=== PATIENT | male | born 2000 | race African-American/Black ===

== ENCOUNTER 2022-11-17 17:48 | Emergency (ER) | payer OTHER ==
[2022-11-17 18:11] VITALS: BP 130/76; O2SAT 100
--- NOTE | 2022-11-17 18:19 | ED Physician Documentation ---
History of Present Illness - Stated complaint Stated Complaint: CHEST PX - Chief complaint Chief Complaint: Abd Pain - Additonal information Additional information: 22-year-old male presents emergency department for evaluation of upper abdominal discomfort that began when his riding in a car. Reports sudden onset with radiation to the left side of his abdomen. Some of the pain did radiate up into his chest. No nausea, vomiting, diarrhea. Denies any shortness of air. She denies any pertinent past medical history or surgical history. He does vape. Takes no prescribed medications. free of chest pain at this time Review of Systems Constitutional: denies: Fever, Chills Cardiac: reports: Chest pain / pressure. denies: Palpitations, Pedal edema, Calf pain Respiratory: denies: Dyspnea, Cough GI: reports: Abdominal Pain. denies: Nausea, Vomiting, Constipation, Diarrhea : reports: Reviewed and negative Skin: reports: Reviewed and negative Musculoskeletal: reports: Reviewed and negative PD PAST MEDICAL HISTORY - Present Medications Home Medications: Ambulatory Orders Medication Instructions Recorded Confirmed No Known Home Medications 11/17/22 11/17/22 - Allergies Allergies/Adverse Reactions: Allergies Allergy/AdvReac Type Severity Reaction Status Date / Time No Known Drug Allergies Allergy Verified 11/17/22 18:09 PD ED PE NORMAL - General General: Alert and oriented X 3, No acute distress - Neck Neck: Supple, no meningeal sign - Cardiac Cardiac: RRR, No murmur - Respiratory Respiratory: No respiratory distress, Clear bilaterally - Abdomen Abdomen: Normal bowel sounds, Soft - Back Back: No CVA TTP - Derm Derm: Normal color, Warm and dry, No rash - Extremities Extremities: No deformity - Neuro Neuro: Alert and oriented X 3, seismic computer 2-12 intact Eye Opening: Spontaneous Motor: Obeys Commands Verbal: Oriented GCS Score: 15 Results - Vitals Vitals: Vital Signs - 24 hr 11/17/22 18:05 Temperature 36.8 C Heart Rate 73 Respiratory 20 Rate Blood Pressure 130/76 O2 Saturation 100 - EKG (time done) 1803 EKG releavant findings:: EKG personally interpreted by author of this note. Relevant findings are: Rate: Rate (enter#) (59) Rhythm: NSR [place]: Normal Intervals: Normal [place] QRS: Normal Ischemia: Normal ST segments Compare to prior EKG: Old EKG unavailable Computer interpretation: Agree with computer - Labs Labs: Laboratory Tests 11/17/22 11/17/22 18:19 18:19 WBC 10.2 RBC 5.17 Hgb 16.0 Hct 47.6 MCV 92.1 MCH 30.9 MCHC 33.6 RDW 11.5 L Plt Count 241 MPV 9.3 Neut # (Auto) 6.3 Lymph # (Auto) 3.1 [place] # (Auto) 0.7 Eos # (Auto) 0.1 Baso # (Auto) 0.0 Absolute Nucleated RBC 0.00 Nucleated RBC % 0.0 Sodium 138 Potassium 3.5 Chloride 103 Carbon Dioxide 27 Anion Gap 8.0 BUN 11 Creatinine 1.1 Estimated GFR (MDRD) 102 Glucose 94 Calcium 10.2 Total Bilirubin 0.6 AST 25 ALT 17 Alkaline Phosphatase 94 Total Protein 7.6 Albumin 4.7 Globulin 2.9 Albumin/Globulin Ratio 1.6 Lipase 7 L PD Medical Decision Making - ED course Complexity details: reviewed results, re-evaluated patient, d/w patient ED course: 22-year-old male present emergency department for evaluation of sudden onset right upper quadrant abdominal pain that radiated into his chest while he was driving in a car. He reported felt like a cramping sensation and he had to get out and walk around. No fevers, nausea vomiting, melena or hematochezia. On presentation the emergency department with initial evaluation he is free of abdominal pain. Screening EKG was nonischemic. CBC and electrolytes as interpreted by myself for entirely benign and unremarkable. I discussed with patient possible etiology of upper abdominal pain which would include gastritis or even biliary colic. Given that he is free of abdominal pain with normal vitals and laboratory results I do not feel that he would benefit from any advanced imaging today. He is advised that should similar episode occur to attempt [id number] Maalox or Tums. We did discuss the usual emergent return precautions for return if symptoms fail to resolve. A dvised to follow closely with PCP. Departure - Departure Disposition: 01 Home, Self Care Clinical Impression: Abdominal pain Qualifiers: Abdominal location: upper abdomen, unspecified Qualified Code(s): R10.10 - Upper abdominal pain, unspecified Condition: Stable Comments: You are seen today in the emergency department because you developed some upper abdominal pain that radiated into your chest. Your labs today were entirely normal. Your EKG also showed no worrisome findings. As discussed at the bedside the most likely diagnosis for you would be that of acid reflux or heartburn. I recommend that if the symptoms occur again to try taking Maalox or Tums [id number]. Another etiology could be the passing of a gallstone. However at the time of your ER evaluation there was no abdominal pain and there were no liver function test abnormalities. At this time I do not feel that you would benefit from any imaging. Please discuss this ED visit with your primary care doctor. If you smoke or vape stop as it could increase the risk for gastritis. Return to the ER if you develop any new or different symptoms, have uncontrolled vomiting, fevers or fainting episodes. Forms: PCP List
[2022-11-17 18:22] LABS: BASOPHILS % (AUTO) 0.4 %; EOSINOPHILS # (AUTO) 0.1 10^3/uL (0.0-0.7); EOSINOPHILS % (AUTO) 1.4 %; HCT - HEMATOCRIT 47.6 % (42.0-52.0); LYMPHOCYTES # (AUTO) 3.1 10^3/uL (1.5-3.5); LYMPHOCYTES % (AUTO) 29.9 %; MEAN CORPUSCULAR HEMOGLOBIN 30.9 pg (27.0-31.0); MEAN CORPUSCULAR HGB CONC 33.6 g/dL (32.0-36.0); MEAN CORPUSCULAR VOLUME 92.1 fL (80.0-94.0); MEAN PLATELET VOLUME 9.3 fL (7.4-11.4); MONOCYTES # (AUTO) 0.7 10^3/uL (0.0-1.0); MONOCYTES % (AUTO) 6.4 %; NEUTROPHILS # (AUTO) 6.3 10^3/uL (1.5-6.6); NEUTROPHILS % (AUTO) 61.7 %; PLT - PLATELET COUNT 241 10^3/uL (130-450); RED BLOOD COUNT 5.17 10^6/uL (4.70-6.10); RED CELL DISTRIBUTION WIDTH 11.5 % (12.0-15.0); WHITE BLOOD COUNT 10.2 x10^3/uL (4.8-10.8)
[2022-11-17 18:36] LABS: ALBUMIN 4.7 g/dL (3.2-5.5); ALBUMIN/GLOBULIN RATIO 1.6 (1.0-2.2); BILIRUBIN,TOTAL 0.6 mg/dL (0.2-1.0); CALCIUM 10.2 mg/dL (8.5-10.3); CREATININE 1.1 mg/dL (0.6-1.3); POTASSIUM 3.5 mmol/L (3.5-4.5); TOTAL PROTEIN 7.6 g/dL (6.4-8.9)
== END 2022-11-17 19:07 | disposition home or self-care (01) ==
LOC: ED 17:48
DX: R10.10 Upper abdominal pain, unspecified (principal)
CPT/HCPCS: 36415; 80053; 83690; 85025; 93005; 99283; 99284

== ENCOUNTER 2023-05-18 09:32 | Emergency (ER) | payer OTHER ==
[2023-05-18 10:03] VITALS: BP 121/77; O2SAT 100
[2023-05-18 10:14] LABS: BASOPHILS # (AUTO) 0.1 10^3/uL (0.0-0.1); BASOPHILS % (AUTO) 0.9 %; EOSINOPHILS # (AUTO) 0.1 10^3/uL (0.0-0.7); HCT - HEMATOCRIT 46.9 % (42.0-52.0); LYMPHOCYTES # (AUTO) 2.4 10^3/uL (1.5-3.5); LYMPHOCYTES % (AUTO) 43.3 %; MEAN CORPUSCULAR HEMOGLOBIN 29.3 pg (27.0-31.0); MEAN CORPUSCULAR VOLUME 91.6 fL (80.0-94.0); MEAN PLATELET VOLUME 9.3 fL (7.4-11.4); MONOCYTES # (AUTO) 0.4 10^3/uL (0.0-1.0); MONOCYTES % (AUTO) 6.6 %; NEUTROPHILS # (AUTO) 2.7 10^3/uL (1.5-6.6); PLT - PLATELET COUNT 263 10^3/uL (130-450); RED BLOOD COUNT 5.12 10^6/uL (4.70-6.10); RED CELL DISTRIBUTION WIDTH 11.6 % (12.0-15.0); WHITE BLOOD COUNT 5.6 x10^3/uL (4.8-10.8)
[2023-05-18 10:22] LABS: ALBUMIN 4.8 g/dL (3.2-5.5); ALBUMIN/GLOBULIN RATIO 1.5 (1.0-2.2); BILIRUBIN,TOTAL 0.5 mg/dL (0.2-1.0); CALCIUM 10.4 mg/dL (8.5-10.3); CREATININE 0.9 mg/dL (0.6-1.3); POTASSIUM 4.3 mmol/L (3.5-4.5); TOTAL PROTEIN 8.1 g/dL (6.4-8.9)
--- NOTE | 2023-05-18 10:36 | ED Physician Documentation ---
PD HPI GI BLEED - Stated complaint Stated Complaint: - Chief complaint Chief Complaint: Abd Pain - History obtained from History obtained from: Patient - Additional information Additional information: Patient is a 23-year-old male, [employer] presenting for evaluation of blood in stools for the past 2 days. Patient states that yesterday afternoon he had a bowel movement and when he wiped he noticed bright red blood. Denies any pain with defecation. It happened again this morning Again there was no associated discomfort. Patient denies feeling lightheaded or dizzy, having chest pain, shortness of air or abdominal pain. Does not take any regular medications including no blood thinners. Has never had this happen to him before. No vomiting. No abdominal pain. Denies hematuria. Review of Systems Constitutional: denies: Fever Cardiac: denies: Chest pain / pressure Respiratory: denies: Dyspnea GI: reports: Bloody / black stool. denies: Abdominal Pain, Vomiting, Constipation : denies: Hematuria PD PAST MEDICAL HISTORY - Past Medical History Past Medical History: Yes Respiratory: Other - Past Surgical History Past Surgical History: No - Present Medications Home Medications: Ambulatory Orders Medication Instructions Recorded Confirmed No Known Home Medications 11/17/22 05/18/23 - Allergies Allergies/Adverse Reactions: Allergies Allergy/AdvReac Type Severity Reaction Status Date / Time No Known Drug Allergies Allergy Verified 05/18/23 09:48 - Social History Does the pt smoke?: No Smoking Status: Never smoker Does the pt drink ETOH?: Yes Does the pt have substance abuse?: No - Immunizations Immunizations are current?: Yes - POLST Patient has POLST: No PD ED PE NORMAL - General General: Alert and oriented X 3, No acute distress, Well developed/nourished - HEENT HEENT: Atraumatic, Moist mucous membranes, Pharynx benign - Neck Neck: Supple, no meningeal sign - Cardiac Cardiac: RRR, Strong equal pulses - Respiratory Respiratory: No respiratory distress, Clear bilaterally - Abdomen Abdomen: Normal bowel sounds, Soft, Non tender, Non distended - Rectal Rectal: Other (Chaperoned by Gerardo PLATA; no fissure, no palpable hemorrhoids, no tenderness, no blood) Results - Vitals Vitals: Vital Signs - 24 hr 05/18/23 09:45 Temperature 36.4 C L Heart Rate 79 Respiratory 16 Rate Blood Pressure 121/77 O2 Saturation 100 Oxygen O2 Source Room air - Labs Labs: Laboratory Tests 05/18/23 05/18/23 10:04 10:04 WBC 5.6 RBC 5.12 Hgb 15.0 Hct 46.9 MCV 91.6 MCH 29.3 MCHC 32.0 RDW 11.6 L Plt Count 263 MPV 9.3 Neut # (Auto) 2.7 Lymph # (Auto) 2.4 [place] # (Auto) 0.4 Eos # (Auto) 0.1 Baso # (Auto) 0.1 Absolute Nucleated RBC 0.00 Nucleated RBC % 0.0 Sodium 139 Potassium 4.3 Chloride 106 Carbon Dioxide 30 Anion Gap 3.0 L BUN 9 Creatinine 0.9 Estimated GFR (MDRD) 128 Glucose 84 Calcium 10.4 H Total Bilirubin 0.5 AST 16 ALT 11 Alkaline Phosphatase 68 Total Protein 8.1 Albumin 4.8 Globulin 3.3 Albumin/Globulin Ratio 1.5 PD Medical Decision Making - ED course Complexity details: reviewed results, d/w patient ED course: Patient is a 23-year-old presenting for evaluation of 2 episodes of blood mixed in with bowel movements. No abdominal tenderness. Vital signs are stable. No hematuria.Rectal exam without any findings.CBC and chemistries reviewed and without significant abnormalities. I discussed need for close follow-up with [facility] primary care provider and likely referral to GI for colonoscopy. Patient counseled regarding concerning symptoms to return for. Departure - Departure Disposition: 01 Home, Self Care Clinical Impression: Hematochezia Condition: Stable Instructions: ED Hematochezia Stable Follow-Up: [facility] [Provider Group] Comments: You need close follow-up at the [facility] with your primary care provider. You likely need a referral to a grocery carrier or specialist to perform a colonoscopy to see why you are having blood in your stools. If you develop any worsening symptoms such as pain, continued bleeding, feeling dizzy or lightheaded then please return to the emergency department. Forms: PCP List Discharge Date/Time: 05/18/23 10:35
== END 2023-05-18 10:35 | disposition home or self-care (01) ==
LOC: ED 09:32
DX: K92.1 Melena (principal)
CPT/HCPCS: 36415; 80053; 85025; 99283